=== PATIENT | female | born 1965 | race Caucasian/White ===

== ENCOUNTER 2017-01-31 13:39 | Inpatient (IN) | payer MEDICAID ==
[~2017-01-31] VITALS: Ht 162.6 cm; Wt 154.2 kg
[2017-01-31 14:34] LABS: PLATELET COUNT 234 x10^3mcL (130-400)
[2017-01-31 14:41] LABS: RED CELL DISTRIBUTION WIDTH 18.3 % (11.5-14.5)
[2017-01-31 14:44] LABS: CALCIUM 8.6 mg/dL (8.5-10.1); CHLORIDE SERUM 98 mmol/L (98-107); CREATININE SERUM 0.8 mg/dL (0.6-1.0); GFR1 > 60 mL/min; GLUCOSE SERUM 135 mg/dL (74-106); POTASSIUM SERUM 4.5 mmol/L (3.5-5.1); SODIUM SERUM 132 mmol/L (136-145)
[2017-01-31] MEDS ORDERED: BACLOFEN20 MG PO (14:57)
[2017-01-31] MEDS ORDERED: FLONS (14:58)
[2017-01-31] MEDS ORDERED: COLACE100 MG PO (14:58)
[2017-01-31] MEDS ORDERED: CRANBERRY450 M2 PO (14:58)
[2017-01-31] MEDS ORDERED: FOSAMAX70 M1 PO (14:59)
[2017-01-31 15:00] LABS: ALKALINE PHOSPHATASE 225 U/L (46-116); ALT/SGPT 112 U/L (14-59); AST/SGOT 84 U/L (15-37); BILIRUBIN TOTAL 0.75 mg/dL (0.20-1.00); T4(THYROXINE) 7.1 ug/dL (4.7-13.3); TOTAL PROTEIN, SERUM 7.9 g/dL (6.4-8.2)
[2017-01-31] MEDS ORDERED: HEPARIN SO5000 UNIT2 SQ (15:00)
[2017-01-31] MEDS ORDERED: NOR10T PO (15:01)
[2017-01-31] MEDS ORDERED: PEPCID20 MG PO (15:29)
[2017-01-31] MEDS ORDERED: NEU300 PO (15:29)
[2017-01-31] MEDS ORDERED: SYNTHROID0.05 MG PO (15:30)
[2017-01-31] MEDS ORDERED: PHARMASSURE VI500 MG PO (15:30)
[2017-01-31] MEDS ORDERED: PROBIOTIC1 EAC1 PO (15:30)
[2017-01-31] MEDS ORDERED: CLARITIN10 MG PO (15:31)
[2017-01-31] MEDS ORDERED: ZINC SULFATE220 MG PO (15:31)
[2017-01-31] MEDS ORDERED: DULCOLAX10 M1 RC (15:32)
[2017-01-31] MEDS ORDERED: MOT600 PO (15:32)
[2017-01-31] MEDS ORDERED: IMITREX PO (15:33)
[2017-01-31] MEDS ORDERED: MOM PO (15:33)
[2017-01-31] MEDS ORDERED: GOOD SENSE PAI650 MG PO (15:34)
[2017-01-31] MEDS ORDERED: WELLBUTRIN XL300 M1 PO (15:35)
[2017-01-31] MEDS ORDERED: EFFEXOR-XR75 MG PO (15:36)
[2017-01-31] MEDS ORDERED: GEODON60 MG PO (15:36)
[2017-01-31 15:40] LABS: BAND NEUTROPHIL 8 % (0-10); BASOPHIL 0 % (0-2); MONOCYTE 3 % (0-7); PLATELET MORPHOLOGY PLATELETS NORMAL; SEGMENTED NEUTROPHILS 87 % (37-75)
[2017-01-31 16:02] LABS: T3 TOTAL 0.67 ng/mL
[2017-01-31 16:11] LABS: microscopic required? YES; urine erythrocyte 2+ (NEGATIVE)
[2017-01-31 16:42] LABS: CHOLESTEROL/HDL RATIO 1.6
[2017-01-31 16:43] LABS: AMPHETAMINE QUAL UR NONE DETECTED (NEG <=1000)
[2017-01-31 16:50] LABS: FREE THYROXINE INDEX 2.1 ug/dL (1.4-4.5); T4(THYROXINE) 6.6 ug/dL (4.7-13.3)
[2017-01-31 19:17] VITALS: BP 155/97
[2017-01-31 20:06] VITALS: BP 113/70
[2017-02-01 02:11] VITALS: BP 104/68
[2017-02-01 06:16] VITALS: BP 123/70
[2017-02-01 07:07] LABS: PLATELET COUNT 212 x10^3mcL (130-400)
[2017-02-01 07:19] LABS: CARBON DIOXIDE 23.4 mmol/L (21-32); CHLORIDE SERUM 103 mmol/L (98-107); CREATININE SERUM 0.8 mg/dL (0.6-1.0); GFR1 > 60 mL/min; GLUCOSE SERUM 117 mg/dL (74-106); MAGNESIUM 2.3 mg/dL (1.8-2.4); POTASSIUM SERUM 4.1 mmol/L (3.5-5.1); SODIUM SERUM 136 mmol/L (136-145)
[2017-02-01 08:06] VITALS: Ht 162.6 cm; Wt 154.2 kg
[2017-02-01 09:17] VITALS: BP 120/71
[2017-02-01 09:54] LABS: BAND NEUTROPHIL 10 % (0-10); BASOPHIL 0 % (0-2); MONOCYTE 7 % (0-7); SEGMENTED NEUTROPHILS 80 % (37-75); rbc morphology (normal/abnorm) ABNORMAL (NORMAL)
[2017-02-01 13:15] VITALS: BP 150/90
[2017-02-01 17:47] VITALS: BP 146/80
[2017-02-01 20:48] VITALS: BP 130/71
[2017-02-02 05:47] VITALS: BP 155/71
[2017-02-02 06:35] LABS: BASOPHIL % 0.1 % (0-2); PLATELET COUNT 218 x10^3mcL (130-400)
[2017-02-02 06:52] LABS: CALCIUM 8.5 mg/dL (8.5-10.1); CARBON DIOXIDE 24.2 mmol/L (21-32); CHLORIDE SERUM 101 mmol/L (98-107); CREATININE SERUM 0.8 mg/dL (0.6-1.0); GFR1 > 60 mL/min; GLUCOSE SERUM 92 mg/dL (74-106); MAGNESIUM 2.2 mg/dL (1.8-2.4); PHOSPHOROUS 1.5 mg/dL (2.5-4.9); POTASSIUM SERUM 3.7 mmol/L (3.5-5.1); SODIUM SERUM 135 mmol/L (136-145)
[2017-02-02 07:00] LABS: RED CELL DISTRIBUTION WIDTH 18.2 % (11.5-14.5)
[2017-02-02 09:54] VITALS: BP 148/75
[2017-02-02 17:13] VITALS: BP 178/91
[2017-02-02 19:06] VITALS: BP 178/91
[2017-02-02 21:32] VITALS: BP 140/61
[2017-02-03 05:44] VITALS: BP 110/64
[2017-02-03 06:27] LABS: PLATELET COUNT 226 x10^3mcL (130-400)
[2017-02-03 06:32] LABS: ALKALINE PHOSPHATASE 209 U/L (46-116); ALT/SGPT 46 U/L (14-59); AST/SGOT 24 U/L (15-37); BILIRUBIN TOTAL 0.2 mg/dL (0.20-1.00); CALCIUM 8.9 mg/dL (8.5-10.1); CARBON DIOXIDE 27.3 mmol/L (21-32); CHLORIDE SERUM 105 mmol/L (98-107); CREATININE SERUM 0.8 mg/dL (0.6-1.0); GFR1 > 60 mL/min; GLUCOSE SERUM 130 mg/dL (74-106); PHOSPHOROUS 2.2 mg/dL (2.5-4.9); POTASSIUM SERUM 3.6 mmol/L (3.5-5.1); SODIUM SERUM 140 mmol/L (136-145)
[2017-02-03 06:33] LABS: ALBUMIN 2.4 g/dL (3.4-5.0)
[2017-02-03 07:12] LABS: BASOPHIL % 0 % (0-2); RED CELL DISTRIBUTION WIDTH 17.9 % (11.5-14.5)
[2017-02-03 09:23] VITALS: BP 120/81
[2017-02-03] MEDS ORDERED: LEVAQUIN750 MG PO (10:05)
[2017-02-03] MEDS ORDERED: [UNRECOGNIZED DRUG - SUPPLY] TP (10:49)
[2017-02-03 13:10] VITALS: BP 120/81
== END 2017-02-03 15:20 | disposition home health service (06) | DRG 720 ==
LOC: ED 13:39 → DU 15:10 → MU 15:10 → DU 16:46 → MU 02-01 07:55
PROVIDERS: Emergency Medicine; Family Medicine; ADMIT Family Medicine
DX: A41.9 Sepsis, unspecified organism (principal); N17.0 Acute kidney failure with tubular necrosis; E43 Unspecified severe protein-calorie malnutrition; L89.311 Pressure ulcer of right buttock, stage 1; L89.321 Pressure ulcer of left buttock, stage 1; G82.20 Paraplegia, unspecified; L89.154 Pressure ulcer of sacral region, stage 4; N12 Tubulo-interstitial nephritis, not specified as acute or chronic; R65.20 Severe sepsis without septic shock; S24.154D Other incomplete lesion at T11-T12 level of thoracic spinal cord, subsequent encounter; F31.30 Bipolar disorder, current episode depressed, mild or moderate severity, unspecified; E87.1 Hypo-osmolality and hyponatremia; I34.0 Nonrheumatic mitral (valve) insufficiency; I35.0 Nonrheumatic aortic (valve) stenosis; B95.62 Methicillin resistant Staphylococcus aureus infection as the cause of diseases classified elsewhere; B96.4 Proteus (mirabilis) (morganii) as the cause of diseases classified elsewhere; B96.89 Other specified bacterial agents as the cause of diseases classified elsewhere; M54.5 Low back pain; G89.29 Other chronic pain; D64.9 Anemia, unspecified; E83.39 Other disorders of phosphorus metabolism; Z68.43 Body mass index [BMI] 50.0-59.9, adult; Z59.0 Homelessness; Z74.01 Bed confinement status; Z16.24 Resistance to multiple antibiotics; X95.9XXS Assault by unspecified firearm discharge, sequela
CPT/HCPCS: 83880; 84439; J1170; J1644; J1885; J1956; J2060; J2405; J2550; J2765; J7030; J7620; Q0092; Q9967